=== PATIENT | male | born 1955 | race Caucasian/White ===

== ENCOUNTER 2019-04-12 10:55 | Emergency (ER) | payer MEDICARE, BC ==
--- NOTE | 2019-04-12 12:02 | EDM.PDOC ---
ED HPI GENERAL MEDICAL PROBLEM - General Chief Complaint: General Stated Complaint: dizziness Time Seen by Provider: 04/12/19 11:16 Source of Information: Reports: Patient History Limitations: Reports: No Limitations - History of Present Illness INITIAL COMMENTS - FREE TEXT/NARRATIVE: Patient is a 63-year-old gentleman who presents to the emergency department via private vehicle and has a complaint of dizziness. 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 Symptoms somewhat resolved within minutes and patient drove home. When patient arrived home, his decided to take him to emergency department for evaluation. Patient does have a long history of intermittent vertigo symptoms. He states years ago was diagnosed with ear infection and had similar symptoms. Patient did undergo a carotid endarterectomy 3 years ago, but this was an incidental finding and was not brought on by symptomology. At this time patient states dizziness is almost resolved. Patient denies chest pain, headache, fever, nausea, vomiting, diarrhea, any trauma, any change in medication, or consuming energy type products. Onset: Today Duration: Minutes: Location: Reports: Head Quality: Reports: Other (Dizziness) Severity: Mild Improves with: Reports: Other (Spontaneous) Worsens with: Reports: None Context: Reports: Activity, Other (While working in the field) - Related Data Allergies Allergy/AdvReac Type Severity Reaction Status Date / Time No Known Allergies Allergy Verified 04/12/19 11:03 Home Meds: Home Meds Aspirin [Ecotrin] 325 mg PO DAILY 04/12/19 [History] Omeprazole 40 mg PO ACBREAKFAST 04/12/19 [History] Ranitidine HCl [Zantac 75] 75 mg PO DAILY 04/12/19 [History] Simvastatin 20 mg PO BEDTIME 04/12/19 [History] Past Medical History Cardiovascular History: Reports: High Cholesterol Respiratory History: Reports: None Gastrointestinal History: Reports: GERD Genitourinary History: Reports: BPH Musculoskeletal History: Reports: Other (See Below) Other Musculoskeletal History: bursitis right leg Neurological History: Reports: Vertigo Endocrine/Metabolic History: Reports: None Hematologic History: Reports: None Immunologic History: Reports: None - Infectious Disease History Infectious Disease History: Reports: None - Past Surgical History Head Surgeries/Procedures: Reports: None Cardiovascular Surgical History: Reports: Carotid Endarterectomy GI Surgical History: Reports: None Dermatological Surgical History: Reports: Skin Biopsy Social & Family History - Family History Family Medical History: Noncontributory - Tobacco Use Smoking Status *Q: Never Smoker Second Hand Smoke Exposure: Yes - Caffeine Use Caffeine Use: Reports: Coffee, Energy Drinks, Soda - Recreational Drug Use Recreational Drug Use: No ED ROS GENERAL - Review of Systems Review Of Systems: ROS reveals no pertinent complaints other than HPI. Constitutional: Reports: No Symptoms HEENT: Reports: Vertigo Respiratory: Reports: No Symptoms Cardiovascular: Reports: No Symptoms Endocrine: Reports: No Symptoms GI/Abdominal: Reports: No Symptoms : Reports: No Symptoms Musculoskeletal: Reports: No Symptoms Skin: Reports: No Symptoms Neurological: Reports: Dizziness. Denies: Headache, Numbness, Paresthesia, Trouble Speaking, Change in Speech, Gait Disturbance Psychiatric: Reports: No Symptoms Hematologic/Lymphatic: Reports: No Symptoms Immunologic: Reports: No Symptoms ED EXAM, GENERAL - Physical Exam Exam: See Below Exam Limited By: No Limitations General Appearance: Alert, WD/WN, No Apparent Distress Eye Exam: Bilateral Eye: Normal Inspection Ears: Normal External Exam, Normal Canal, Hearing Grossly Normal, Normal TMs Ear Exam: Bilateral Ear: Auricle Normal, Canal Normal, TM normal Nose: Normal Inspection, Normal Mucosa, No Blood Throat/Mouth: Normal Inspection, Normal Oropharynx, No Airway Compromise Head: Atraumatic, Normocephalic Neck: Normal Inspection, Supple, Non-Tender, Full Range of Motion, Lymphadenopathy (L), Lymphadenopathy (R). No: Carotid Bruit Respiratory/Chest: No Respiratory Distress, Lungs Clear, Normal Breath Sounds, No Accessory Muscle Use Cardiovascular: Normal Peripheral Pulses, Regular Rate, Rhythm, No Murmur GI/Abdominal: Normal Bowel Sounds, Soft, Non-Tender Back Exam: Normal Inspection. No: CVA Tenderness (L), CVA Tenderness (R) Extremities: Normal Inspection, Normal Range of Motion, Non-Tender, No Pedal Edema Neurological: Alert, Oriented, CN II-XII Intact, Normal Cognition, No Motor/ Sensory Deficits Psychiatric: Normal Affect, Normal Mood Skin Exam: Warm, Dry, Intact, Normal Color, No Rash EKG INTERPRETATION EKG Date: 04/12/19 Time: 12:20 Rhythm: NSR Rate (Beats/Min): 75 [place]: Normal P-Wave: Present QRS: Normal ST-T: Normal QT: Normal Comparison: No Change Course - Vital Signs Last Recorded V/S: Last Vital Signs Temp 98.6 F 04/12/19 10:59 Pulse 91 04/12/19 10:59 Resp 18 04/12/19 10:59 BP 186/88 H 04/12/19 10:59 Pulse Ox 94 L 04/12/19 10:59 - Orders/Labs/Meds Orders: Active Orders 24 hr Category Date Time Status Head wo Cont [CT] Stat Exams 04/12/19 11:30 Ordered - Radiology Interpretation Free Text/Narrative:: CT head showed no acute intracranial process - Re-Assessments/Exams Free Text/Narrative Re-Assessment/Exam: 04/12/19 13:15 Patient afebrile, vital signs stable, dizziness, resolved. Patient had a scheduled visit with ENT tomorrow, however, had to cancel due to work issues. Patient will reschedule for ENT follow-up Departure - Departure Time of Disposition: 13:16 Disposition: Home, Self-Care 01 Condition: Good Clinical Impression: Dizziness, nonspecific - Discharge Information Instructions: Dizziness, [id number], Vertigo, [id number] Referrals: Jolynn Love MD [Primary Care Provider] - Additional Instructions: Follow-up with PCP in next 1-2 days. Also follow up with ENT next available. Return to his shortness of symptoms continue or worsen - My Orders Last 24 Hours: My Active Orders 04/12/19 11:30 Head wo Cont [CT] Stat - Assessment/Plan Last 24 Hours: My Active Orders 04/12/19 11:30 Head wo Cont [CT] Stat Assessment:: Dizziness Plan: Follow-up with PCP and ENT
== END 2019-04-12 13:30 | disposition home or self-care (01) ==
LOC: KA.ED 10:55
DX: R42 Dizziness and giddiness (principal); E78.00 Pure hypercholesterolemia, unspecified; K21.9 Gastro-esophageal reflux disease without esophagitis; Z77.22 Contact with and (suspected) exposure to environmental tobacco smoke (acute) (chronic); Z79.899 Other long term (current) drug therapy
CPT/HCPCS: 70450; 93005; 99283; 99284-25

== ENCOUNTER 2019-12-12 01:34 | Observation (INO) | payer MEDICARE, BC ==
[2019-12-12] MEDS ORDERED: Sodium Chloride 0.9% 10 ML Syringe FLUSH PRN ×2 (01:48→03:07)
--- NOTE | 2019-12-12 02:33 | EDM.PDOC ---
ED HPI GENERAL MEDICAL PROBLEM - General Chief Complaint: General Stated Complaint: Left side pain Time Seen by Provider: 12/12/19 02:00 Source of Information: Reports: Patient History Limitations: Reports: No Limitations - History of Present Illness INITIAL COMMENTS - FREE TEXT/NARRATIVE: 64 YO WM with PMH of carotidenarterectomy, hyperlipidemia, GERD who presents to ER with left sided chest pain which began 1 am tonight. Pt reports episode lasts for less than 1 minute. Pt denies any associated shortness of breath, dizziness, diaphoresis, nausea/vomiting. Pt states pain comes/goes. Pt describes pain as a dull ache. Pt reports when symptoms began he took ASA 325mg and his Crestor. Pt is currently without pain at time of interview. Pt denies rash, no radiating pain, no recent illness or fever/chills. Onset: Today Onset Date: 12/12/19 Onset Time: 01:00 Location: Reports: Chest Quality: Reports: Dull Severity: Mild Improves with: Reports: None Worsens with: Reports: None Associated Symptoms: Reports: Chest Pain. Denies: Cough, Diaphoresis, Fever/ Chills, Nausea/Vomiting, Rash, Shortness of Breath, Syncope Left Side Lower Ribs Pain Score (Numeric/FACES): 2 - Related Data Allergies Allergy/AdvReac Type Severity Reaction Status Date / Time No Known Allergies Allergy Verified 12/12/19 01:48 Home Meds: Home Meds Aspirin [Ecotrin] 325 mg PO DAILY 04/12/19 [History] Omeprazole 40 mg PO ACBREAKFAST 04/12/19 [History] Betamethasone/Clotrimazole [Lotrisone] 1 applic TOP TID 12/12/19 [History] Rosuvastatin Calcium 10 mg PO DAILY 12/12/19 [History] Past Medical History Cardiovascular History: Reports: High Cholesterol Respiratory History: Reports: None Gastrointestinal History: Reports: GERD Genitourinary History: Reports: BPH Musculoskeletal History: Reports: Other (See Below) Other Musculoskeletal History: bursitis right leg Neurological History: Reports: Vertigo Endocrine/Metabolic History: Reports: None Hematologic History: Reports: None Immunologic History: Reports: None - Infectious Disease History Infectious Disease History: Reports: None - Past Surgical History Head Surgeries/Procedures: Reports: None Cardiovascular Surgical History: Reports: Carotid Endarterectomy GI Surgical History: Reports: None Dermatological Surgical History: Reports: Skin Biopsy Social & Family History - Family History Family Medical History: Noncontributory - Tobacco Use Smoking Status *Q: Never Smoker - Caffeine Use Caffeine Use: Reports: Coffee, Soda - Recreational Drug Use Recreational Drug Use: No ED ROS GENERAL - Review of Systems Review Of Systems: See Below Constitutional: Reports: No Symptoms HEENT: Reports: No Symptoms Respiratory: Reports: No Symptoms Cardiovascular: Reports: Chest Pain Endocrine: Reports: No Symptoms GI/Abdominal: Reports: No Symptoms ED EXAM, GENERAL - Physical Exam Exam: See Below Exam Limited By: No Limitations General Appearance: Alert, WD/WN, No Apparent Distress Throat/Mouth: Normal Inspection, Normal Lips, Normal Teeth, Normal Gums, Normal Oropharynx, Normal Voice, No Airway Compromise Head: Atraumatic, Normocephalic Neck: Normal Inspection, Supple, Non-Tender, Full Range of Motion Respiratory/Chest: No Respiratory Distress, Lungs Clear, Normal Breath Sounds, No Accessory Muscle Use, Chest Non-Tender Cardiovascular: Normal Peripheral Pulses, Regular Rate, Rhythm, No Edema, No Gallop, No JVD, No Murmur, No Rub GI/Abdominal: Normal Bowel Sounds, Soft, Non-Tender, No Organomegaly, No Distention, No Abnormal Bruit, No Mass Back Exam: Normal Inspection, Full Range of Motion, NT Extremities: Normal Inspection, Normal Range of Motion, Non-Tender, Normal Capillary Refill, No Pedal Edema Neurological: Alert, Oriented, CN II-XII Intact, Normal Cognition, Normal Gait, Normal Reflexes, No Motor/Sensory Deficits Psychiatric: Normal Affect, Normal Mood Skin Exam: Warm, Dry, Intact, Normal Color, No Rash Lymphatic: No Adenopathy EKG INTERPRETATION EKG Date: 12/12/19 Time: 01:39 Rhythm: NSR Rate (Beats/Min): 70 [place]: LAD-Left [place] Deviation P-Wave: Present QRS: Normal ST-T: Normal QT: Normal Comparison: NA - No Prior EKG Course - Vital Signs Last Recorded V/S: Last Vital Signs Temp 36.4 C 12/12/19 02:08 Pulse 73 12/12/19 02:08 Resp 20 12/12/19 02:08 BP 150/78 H 12/12/19 02:08 Pulse Ox 95 12/12/19 02:08 - Orders/Labs/Meds Orders: Active Orders 24 hr Category Date Time Status EKG Documentation Completion [RC] ASDIRECTED Care 12/12/19 01:48 Active Peripheral IV Care [RC] . DIRECTED Care 12/12/19 01:48 Active Chest 2V [CR] Stat Exams 12/12/19 01:48 Ordered Sodium Chloride 0.9% [Saline Flush] Med 12/12/19 01:48 Active 10 ml FLUSH Q8HR PRN Peripheral IV Insertion Adult [OM.PC] Routine Oth 12/12/19 01:48 Ordered EKG 12 Lead [EK] Routine Ther 12/12/19 01:48 Ordered Medication Orders Sodium Chloride (Saline Flush) 10 ml FLUSH Q8HR PRN PRN Reason: keep vein open Last Admin: 12/12/19 02:27 Dose: 10 ml Labs: Laboratory Tests 12/12/19 12/12/19 Range/Units 02:24 02:24 WBC 6.42 (5.00-10.00) 10^3/uL RBC 4.67 (4.50-6.00) 10^6/uL Hgb 15.4 (13.0-17.0) g/dL Hct 43.9 (40.0-52.0) % MCV 94.0 H (82.0-92.0) fL MCH 33.0 H (27.0-31.0) pg MCHC 35.1 (32.0-36.0) g/dL RDW 11.9 (11.5-14.5) % Plt Count 206 (150-400) 10^3/uL MPV 9.5 (7.4-10.4) fL Immature Gran % (Auto) 0.2 (0.0-5.0) % Neut % (Auto) 52.5 (50.0-70.0) % Lymph % (Auto) 34.7 (20.0-40.0) % [place] % (Auto) 10.1 H (2.0-8.0) % Eos % (Auto) 2.0 (1.0-3.0) % Baso % (Auto) 0.5 (0.0-1.0) % Immature Gran # (Auto) 0.01 (0.00-0.50) 10^3/uL Neut # (Auto) 3.37 (2.50-7.00) 10^3/uL Lymph # (Auto) 2.23 (1.00-4.00) 10^3/uL [place] # (Auto) 0.65 (0.10-0.80) 10^3/uL Eos # (Auto) 0.13 (0.10-0.30) 10^3/uL Baso # (Auto) 0.03 (0.00-0.10) 10^3/uL Sodium 140 D (136-145) mmol/L Potassium 4.3 (3.3-5.3) mmol/L Chloride 102 (98-115) mmol/L Carbon Dioxide 29.7 (21.0-32.0) mmol/L Anion Gap 12.6 (5-15) mmol/L BUN 15 (6-25) mg/dL Creatinine 0.94 (0.51-1.17) mg/dL Est Cr Clr Drug Dosing 64.73 mL/min Estimated GFR (MDRD) > 60 mL/min Glucose 111 H (75 - 99) mg/dL Calcium 8.5 L (8.7-10.3) mg/dL Total Bilirubin 0.3 (0.2-1.0) mg/dL AST 19 (15-37) U/L ALT 42 (12-78) U/L Alkaline Phosphatase 80 (46-116) IU/L Creatine Kinase 40 (26-276) U/L CK-MB (CK-2) 0.60 (0.00-4.30) ng/mL Troponin I 0.05 (0.00-0.070) ng/mL Total Protein 6.9 (6.4-8.2) g/dL Albumin 3.48 (3.00-4.80) g/dL Meds: Medications Generic Name Dose Route Start Last Admin Trade Name Freq PRN Reason Stop Dose Admin Sodium Chloride 10 ml 12/12/19 01:48 12/12/19 02:27 Saline Flush FLUSH 10 ml Q8HR PRN Administration keep vein open - Radiology Interpretation Free Text/Narrative:: CXR- NAD Departure - Departure Time of Disposition: 03:05 Disposition: Refer to Observation Condition: Fair Clinical Impression: Chest pain Qualifiers: Chest pain type: unspecified Qualified Code(s): R07.9 - Chest pain, unspecified - Discharge Information Referrals: Jolynn Love MD [Primary Care Provider] - Forms: ED Department Discharge Sepsis Event Note - Evaluation Sepsis Screening Result: No Definite Risk - Focused Exam Vital Signs: Vital Signs Temp Pulse Resp BP Pulse Ox 12/12/19 02:08 36.4 C 73 20 150/78 H 95 12/12/19 02:05 74 19 150/62 H 95 12/12/19 01:50 73 20 140/69 95 Date Exam was Performed: 12/12/19 Time Exam was Performed: 03:00 - My Orders Last 24 Hours: My Active Orders 12/12/19 01:48 EKG Documentation Completion [RC] ASDIRECTED Peripheral IV Care [RC] . DIRECTED Chest 2V [CR] Stat Sodium Chloride 0.9% [Saline Flush] 10 ml FLUSH Q8HR PRN Peripheral IV Insertion Adult [OM.PC] Routine EKG 12 Lead [EK] Routine - Assessment/Plan Last 24 Hours: My Active Orders 12/12/19 01:48 EKG Documentation Completion [RC] ASDIRECTED Peripheral IV Care [RC] . DIRECTED Chest 2V [CR] Stat Sodium Chloride 0.9% [Saline Flush] 10 ml FLUSH Q8HR PRN Peripheral IV Insertion Adult [OM.PC] Routine EKG 12 Lead [EK] Routine Assessment:: 1. Atypical Chest pain Plan: 1. admit for obs- Dr Faria 2. serial trop I Q4 x 3 3. ASA/nitro 4. supportive care
[2019-12-12 02:59] LABS: ANION GAP 12.6 mmol/L (5-15); CHLORIDE,CL 102 mmol/L (98-115); SODIUM,NA 140 mmol/L (136-145)
[2019-12-12] MEDS ORDERED: Acetaminophen 325 MG Tab PO PRN (03:07)
[2019-12-12] MEDS: Nitroglycerin 2% Oint 1 GM UD Packet TOP SCH ×2 (03:18→08:47)
[2019-12-12] MEDS ORDERED: Atropine 0.1 MG/ML 10 ML Syringe IVPUSH PRN (04:37)
[2019-12-12] MEDS ORDERED: EPINEPHrine 1:10,000 1 MG/10 ML Syringe IVPUSH PRN (04:37)
[2019-12-12] MEDS ORDERED: Lidocaine 2% 100 MG/5 ML Syringe IVPUSH PRN (04:37)
--- NOTE | 2019-12-12 07:48 | CR ---
[id number] RAD/RAD Chest PA And Lateral EXAM: FRONTAL AND LATERAL CHEST INDICATION: LEFT SIDE RIB/CHEST PAIN COMPARISON: March 01, 2009. DISCUSSION: Mild chronic T12 compression fracture. Mild hyperinflation suggests underlying chronic obstructive pulmonary disease. Increased mild linear scarring or atelectasis in the imaged lung bases. No definite infiltrates. Normal heart size. IMPRESSION: 1. No acute findings. Boom Us MD 12/12/19 0747 Thank you for allowing us to participate in the care of your patient.
[2019-12-12] MEDS: Betamethasone Dipropionate/Clotrimazole 0.05-1% Crm 15 GM Tube TOP SCH ×2 (08:50→13:12)
--- NOTE | 2019-12-12 14:42 | PCM.DCSUM1 ---
Discharge Summary - Hospital Course Free Text/Narrative:: Admission Date: 12/12/2019 Discharge Date: 12/12/2019 Admission Diagnoses: Chest pain, r/o WI Discharge Diagnoses: Chest pain, non-cardiac, WI ruled out. Secondary Diagnoses: Hx of carotid stenosis s/p endarterectomy in 2016 Acid Reflux Hyperlipidemia [place] was admitted earlier this morning when left sided chest and left upper abdominal pain that awoke him from sleep. It lasts approximately 1 minute and has not recurred since being in the ER or the hospital. He describes the pain as an aches in the left lateral chest and L upper abdomen. No radiation to the arm or jaw. No other symptoms, specifically no N/V/D, no SOB, no diaphoresis, no dizziness. He has a hx of carotid artery disease and so he was admitted to rule out WI. Initial troponin was 0.05, next 2 were <0.04 and the final one done 12 hours after his event was 0.04, all 4 negative. EKG was OK. He recently had a wellness exam and lipids were total cholesterol 146, HDL 39, LDL 89 and TG's 92. He was switched from simvastatin to rosuvastatin and significant improvement in his muscle cramps. He will be discharged to home with follow-up for an outpatient Cardiolyte exercise stress test. No new meds or therapies. Diagnosis: Stroke: No Modified [place] Scale: No Symptoms at All Modified [place] Scale Score: 0 - Discharge Data Discharge Date: 12/12/19 Discharge Disposition: Home, Self-Care 01 Condition: Good - Referral to Home Health Primary Care Physician: Jolynn Love MD - Patient Summary/Data Recommended Follow-up Testing/Procedures: Cardiolyte stress test. - Patient Instructions Diet: Heart Healthy Diet Activity: As Tolerated - Discharge Plan *PRESCRIPTION DRUG MONITORING PROGRAM REVIEWED*: Not Applicable *COPY OF PRESCRIPTION DRUG MONITORING REPORT IN PATIENT CARLYN: Not Applicable Home Medications: Home Meds Aspirin [Ecotrin EC] 325 mg PO DAILY 04/12/19 [History] Omeprazole 40 mg PO BEDTIME 04/12/19 [History] Betamethasone/Clotrimazole [Lotrisone] 1 applic TOP TID 12/12/19 [History] Rosuvastatin Calcium 10 mg PO DAILY 12/12/19 [History] Forms: ED Department Discharge Referrals: [place] MD [Primary Care Provider] - - Discharge Summary/Plan Comment DC Time >30 min.: No - General Info Date of Service: 12/12/19 Admission Dx/Problem (Free Text: Left sided chest pain. - Patient Data Vitals - Most Recent: Last Vital Signs Temp 96.7 F 12/12/19 11:00 Pulse 79 12/12/19 11:00 Resp 16 12/12/19 11:00 BP 126/70 12/12/19 11:00 Pulse Ox 93 L 12/12/19 11:00 Weight - Most Recent: 205 lb 3 oz I&O - Last 24 hours: Intake & Output 12/11/19 12/12/19 12/12/19 22:59 06:59 14:59 Intake Total 100 Balance 100 Lab Results - Last 24 hrs: Laboratory Results - last 24 hr 12/12/19 12/12/19 12/12/19 Range/Units 02:24 02:24 06:10 WBC 6.42 (5.00-10.00) 10^3/uL RBC 4.67 (4.50-6.00) 10^6/uL Hgb 15.4 (13.0-17.0) g/dL Hct 43.9 (40.0-52.0) % MCV 94.0 H (82.0-92.0) fL MCH 33.0 H (27.0-31.0) pg MCHC 35.1 (32.0-36.0) g/dL RDW 11.9 (11.5-14.5) % Plt Count 206 (150-400) 10^3/uL MPV 9.5 (7.4-10.4) fL Immature Gran % (Auto) 0.2 (0.0-5.0) % Neut % (Auto) 52.5 (50.0-70.0) % Lymph % (Auto) 34.7 (20.0-40.0) % [place] % (Auto) 10.1 H (2.0-8.0) % Eos % (Auto) 2.0 (1.0-3.0) % Baso % (Auto) 0.5 (0.0-1.0) % Immature Gran # (Auto) 0.01 (0.00-0.50) 10^3/uL Neut # (Auto) 3.37 (2.50-7.00) 10^3/uL Lymph # (Auto) 2.23 (1.00-4.00) 10^3/uL [place] # (Auto) 0.65 (0.10-0.80) 10^3/uL Eos # (Auto) 0.13 (0.10-0.30) 10^3/uL Baso # (Auto) 0.03 (0.00-0.10) 10^3/uL Sodium 140 D (136-145) mmol/L Potassium 4.3 (3.3-5.3) mmol/L Chloride 102 (98-115) mmol/L Carbon Dioxide 29.7 (21.0-32.0) mmol/L Anion Gap 12.6 (5-15) mmol/L BUN 15 (6-25) mg/dL Creatinine 0.94 (0.51-1.17) mg/dL Est Cr Clr Drug Dosing 64.73 mL/min Estimated GFR (MDRD) > 60 mL/min Glucose 111 H (75 - 99) mg/dL Calcium 8.5 L (8.7-10.3) mg/dL Total Bilirubin 0.3 (0.2-1.0) mg/dL AST 19 (15-37) U/L ALT 42 (12-78) U/L Alkaline Phosphatase 80 (46-116) IU/L Creatine Kinase 40 (26-276) U/L CK-MB (CK-2) 0.60 (0.00-4.30) ng/mL Troponin I 0.05 < 0.04 (0.00-0.070) ng/mL Total Protein 6.9 (6.4-8.2) g/dL Albumin 3.48 (3.00-4.80) g/dL 12/12/19 Range/Units 10:20 WBC (5.00-10.00) 10^3/uL RBC (4.50-6.00) 10^6/uL Hgb (13.0-17.0) g/dL Hct (40.0-52.0) % MCV (82.0-92.0) fL MCH (27.0-31.0) pg MCHC (32.0-36.0) g/dL RDW (11.5-14.5) % Plt Count (150-400) 10^3/uL MPV (7.4-10.4) fL Immature Gran % (Auto) (0.0-5.0) % Neut % (Auto) (50.0-70.0) % Lymph % (Auto) (20.0-40.0) % [place] % (Auto) (2.0-8.0) % Eos % (Auto) (1.0-3.0) % Baso % (Auto) (0.0-1.0) % Immature Gran # (Auto) (0.00-0.50) 10^3/uL Neut # (Auto) (2.50-7.00) 10^3/uL Lymph # (Auto) (1.00-4.00) 10^3/uL [place] # (Auto) (0.10-0.80) 10^3/uL Eos # (Auto) (0.10-0.30) 10^3/uL Baso # (Auto) (0.00-0.10) 10^3/uL Sodium (136-145) mmol/L Potassium (3.3-5.3) mmol/L Chloride (98-115) mmol/L Carbon Dioxide (21.0-32.0) mmol/L Anion Gap (5-15) mmol/L BUN (6-25) mg/dL Creatinine (0.51-1.17) mg/dL Est Cr Clr Drug Dosing mL/min Estimated GFR (MDRD) mL/min Glucose (75 - 99) mg/dL Calcium (8.7-10.3) mg/dL Total Bilirubin (0.2-1.0) mg/dL AST (15-37) U/L ALT (12-78) U/L Alkaline Phosphatase (46-116) IU/L Creatine Kinase (26-276) U/L CK-MB (CK-2) (0.00-4.30) ng/mL Troponin I < 0.04 (0.00-0.070) ng/mL Total Protein (6.4-8.2) g/dL Albumin (3.00-4.80) g/dL Med Orders - Current: Current Medications Acetaminophen (Tylenol) 650 mg PO Q4H PRN PRN Reason: Pain (Mild 1-3)/fever Aspirin (Ecotrin) 325 mg PO DAILY [facility] Atropine Sulfate (Atropine 0.1 Mg/Ml) 0 mg IVPUSH ASDIRECTED PRN PRN Reason: Heart. Betamethasone/Clotrimazole (Lotrisone) 0 gm TOP TID [facility] Last Admin: 12/12/19 13:12 Dose: Not Given Epinephrine HCl (Epinephrine 1:10,000) 1 mg IVPUSH ASDIRECTED PRN PRN Reason: Heart. Lidocaine HCl (Xylocaine 2%) 0 mg IVPUSH ASDIRECTED PRN PRN Reason: Heart. Nitroglycerin (Nitro-Bid 2%) 1 gm TOP Q6H [facility] Last Admin: 12/12/19 08:47 Dose: 1 gm Omeprazole (Omeprazole) 40 mg PO BEDTIME [facility] Rosuvastatin Calcium (Crestor) 10 mg PO DAILY [facility] Sodium Chloride (Saline Flush) 10 ml FLUSH Q8HR PRN PRN Reason: keep vein open Discontinued Medications Sodium Chloride (Saline Flush) 10 ml FLUSH Q8HR PRN PRN Reason: keep vein open Last Admin: 12/12/19 02:27 Dose: 10 ml - Exam General: Reports: Alert, Oriented, Cooperative, No Acute Distress Lungs: Reports: Clear to Auscultation, Normal Respiratory Effort Cardiovascular: Reports: Regular Rate, Regular Rhythm, No Murmurs GI/Abdominal Exam: Normal Bowel Sounds, Non-Tender
[2019-12-12] MEDS ORDERED: Omeprazole 20 MG Cap.CR PO SCH (21:00)
[2019-12-13] MEDS ORDERED: Aspirin 325 MG Tab.EC PO SCH (09:00)
[2019-12-13] MEDS ORDERED: Rosuvastatin 10 MG Tab PO SCH (09:00)
== END 2019-12-12 15:35 | disposition home or self-care (01) ==
LOC: KA.ED 01:34 → KA.MS 03:06 → UNDOADMOB 03:15 → KA.MS 03:15
PROVIDERS: ADMIT Physician Assistant Medical; ATTEND Internal Medicine
DX: R07.89 Other chest pain (principal); E78.5 Hyperlipidemia, unspecified; E78.00 Pure hypercholesterolemia, unspecified; K21.9 Gastro-esophageal reflux disease without esophagitis; Z79.82 Long term (current) use of aspirin; Z79.899 Other long term (current) drug therapy; Z86.79 Personal history of other diseases of the circulatory system
CPT/HCPCS: 36415; 71046; 80053; 82550; 82553; 84484; 85025; 93005; A9270-GY; G0378